=== PATIENT | male | born 1960 | race Caucasian/White ===

== ENCOUNTER → 2017-12-06 | Outpatient (CLI) | payer BC ==
[2017-12-06] MEDS: GADOBUTROL 10 MMOL/10 ML VIAL IV (13:23)
== END | disposition home or self-care (01) ==
LOC: KCIC MRI 12:06
DX: D35.2 Benign neoplasm of pituitary gland (principal)
CPT/HCPCS: 70553; A9585

== ENCOUNTER → 2017-12-20 | Outpatient (CLI) | payer BC | END | disposition home or self-care (01) | LOC: KCIC 14:04 | DX: M79.671 Pain in right foot (principal); M79.672 Pain in left foot | CPT/HCPCS: 73630 ==